=== PATIENT | female | born 1970 | race Caucasian/White ===

== ENCOUNTER 2017-01-02 13:46 | Inpatient (IN) | payer OTHER ==
[~2017-01-02] VITALS: Ht 165.1 cm; Wt 97.6 kg
[~2017-01-02 13:46] MED LIST: ACEON2 MG PO; ACEON8 MG PO; AERONEB GO NEB1 EACH MC; ALBUTEROL SULF8.5 GM IH; ALLEGRA ALLERGY60 MG PO; CARVEDILOL6.25 MG PO; CELEBREX200 MG PO; COREG3.125 M1 PO; COUMADIN,JANTOVE1 MG PO; COUMADIN1 MG PO; COUMADIN10 MG PO; COUMADIN2 MG PO; COUMADIN7.5 MG PO; CYANOCOBALAMI100 MCG PO; CYCLOBENZAPRINE10 MG PO; DULCOLAX5 MG PO; DUONEB 2.5-0.5 M3 ML AEROSOL; ENDOCET 5-3251 EACH PO; FISH OIL CONC1 EACH PO; FLEXERIL10 MG PO; IPRATR-ALBUTEROL3 ML IH; IRON325 M1 PO; K-DUR20 MEQ PO; LASIX20 MG PO; LASIX40 MG PO; LEVAQUIN500 MG PO; LEVAQUIN750 MG PO; LIDEX 0.05% CRE60 GM TP; LIPOZENE PO; LORTAB 5-325 M1 EACH PO; LOVENOX100 MG/1 M SC; MICRO-K10 ME1 PO; NAPROXEN500 MG PO; NYSTATIN-TRIAMC15 GM TP; POTASSIUM CHLO10 ME3 PO; POTASSIUM PO; PREDNISONE20 MG PO; SYNALAR 0.025%15 GM TP; TYLENOL WITH C1 EACH PO; VALIUM2 MG PO; VICODINE PO; VITAMIN B122500 MCG PO; VITAMIN D31000 UNIT PO; WARFARIN SODIU7.5 MG; WARFARIN SODIU7.5 MG PO; ZESTRIL2.5 MG PO; ZOFRAN4 MG PO; lipozene PO
[2017-01-02 14:22] LABS: EOSINOPHIL (%) 1.8 % (0-5); EOSINOPHIL COUNT 0.2 K/uL (0-0.3); HEMATOCRIT 40.6 % (36.0-46.0); IMMATURE GRANULOCYTE (%) 0.2 % (0.0-0.7); INSTRUMENT ABS NEUTROPHIL CT 6.8 K/uL; LYMPHOCYTE COUNT 1.9 K/uL (1.0-2.8); MCH 29.1 PG (29.0-34.0); MCHC 33.7 G/DL (30.0-36.0); MCV 86.2 FL (83-99); MONOCYTE (%) 6.9 % (3-12); MONOCYTE COUNT 0.7 K/uL (0-0.8); NEUTROPHIL (%) 70.9 % (45-76); NEUTROPHIL COUNT 6.8 K/uL (1.8-6.4); PLATELET COUNT 238 K/uL (156-360); RBC DIS.WIDTH-CV 13.2 % (11.8-14.6); RBC DIS.WIDTH-SD 41.7 % (39-53); RED BLOOD COUNT 4.71 M/uL (3.80-5.20); WHITE BLOOD COUNT 9.6 K/uL (4.1-10.2)
[2017-01-02 14:27] LABS: INTER. NORMALIZED RATIO 2.5
[2017-01-02 14:30] LABS: PTT 39.2 SEC (25-37)
[2017-01-02 14:32] LABS: CHLORIDE 109 mEq/L (99-109); POTASSIUM 3.8 mEq/L (3.7-5.4); SODIUM 140 mEq/L (136-147)
[2017-01-02 14:34] LABS: GLUCOSE 138 mg/dL (70-99)
[2017-01-02 14:36] LABS: ANION GAP 7 MEQ/L (2-14)
[2017-01-02 14:38] LABS: GFR ESTIMATE (CALCULATED) > 59 mL/min/
[2017-01-02 14:39] LABS: UREA NITROGEN (BUN) 12 mg/dL (9-23)
[2017-01-02 14:42] LABS: TROP-I INTERPRETATION NEGATIVE; TROPONIN-I 0.05 ng/mL (0.0-0.30)
[2017-01-02 16:02] LABS: ADD MIUA? YES; BILIRUBIN NEGATIVE; BLOOD NEGATIVE; COLOR YELLOW ((YELLOW)); GLUCOSE (STRIP) NEGATIVE; KETONES NEGATIVE; LEUKOCYTES NEGATIVE; NITRITE NEGATIVE; PROTEIN (STRIP) 30; SPECIFIC GRAVITY 1.016 (1.000-1.030); UROBILINOGEN 0.2 MG/DL (0.2-1.0)
[2017-01-02 16:18] LABS: BACTERIA RARE /HPF; EPITHELIAL CELLS 1+ /HPF; MUCUS TRACE /LPF; RED BLOOD CELLS 0-5 /HPF (0-5); UCUL ADDED? NO; UNCLASSIFIED CASTS 0-5 /LPF; WHITE BLOOD CELLS 0-5 /HPF (0-5)
[2017-01-02] MEDS ORDERED: COREG6.25 M1 PO (17:34)
[2017-01-02] MEDS ORDERED: LASIX80 MG PO (17:35)
[2017-01-02] MEDS ORDERED: PROAIR HFA8.5 GM IH (17:37)
[2017-01-02] MEDS ORDERED: CORLANOR5 MG PO (17:38)
[2017-01-02] MEDS ORDERED: BUMEX1 MG PO (17:38)
[2017-01-02] MEDS ORDERED: TYLENOL WITH C1 EACH PO (17:39)
[2017-01-02] MEDS ORDERED: COLACE100 MG PO (17:39)
[2017-01-02] MEDS ORDERED: COZAAR25 MG PO (17:39)
[2017-01-02] MEDS ORDERED: NIZORAL 2% CREA15 GM TP (17:40)
[2017-01-02 18:03] LABS: POINT-OF-CARE METER ID UU13113702
[2017-01-02 21:09] VITALS: BP 134/80
[2017-01-02 21:52] LABS: TROP-I INTERPRETATION NEGATIVE; TROPONIN-I 0.05 ng/mL (0.0-0.30)
[2017-01-03 03:49] VITALS: BP 112/56
[2017-01-03 06:41] LABS: TROP-I INTERPRETATION NEGATIVE; TROPONIN-I 0.04 ng/mL (0.0-0.30)
[2017-01-03 07:35] VITALS: BP 100/65
[2017-01-03 11:45] LABS: INTER. NORMALIZED RATIO 1.7; PROTHROMBIN TIME 19.5 SEC (10.2-12.9)
[2017-01-03 12:09] VITALS: BP 104/68
[2017-01-03 12:10] LABS: TROP-I INTERPRETATION NEGATIVE; TROPONIN-I 0.04 ng/mL (0.0-0.30)
[2017-01-03 16:35] VITALS: BP 113/69
[2017-01-03 18:29] LABS: HDL CHOLESTEROL 41 MG/DL (Desirable>=50); LDL CHOLESTEROL 105 mg/dL (Desirable<100); NON-HDL CHOLESTEROL 113 mg/dL (Desirable<160); TOTAL CHOLESTEROL 154 mg/dL (Desirable<200); TRIGLYCERIDES 41 MG/DL (Normal: <150)
[2017-01-03 18:50] LABS: Estimated Average Glucose 114 mg/dL (70-123); HEMOGLOBIN A1c (GLYCOHEMOGLOB) 5.6 % HGB (Below 5.7)
[2017-01-03 19:48] VITALS: BP 133/64
[2017-01-03 23:31] VITALS: BP 93/58
[2017-01-04 03:41] VITALS: BP 109/61
[2017-01-04 06:33] LABS: EOSINOPHIL (%) 2.5 % (0-5); EOSINOPHIL COUNT 0.2 K/uL (0-0.3); HEMATOCRIT 40.1 % (36.0-46.0); IMMATURE GRANULOCYTE (%) 0.2 % (0.0-0.7); INSTRUMENT ABS NEUTROPHIL CT 5.7 K/uL; LYMPHOCYTE COUNT 2.3 K/uL (1.0-2.8); MCH 28.6 PG (29.0-34.0); MCHC 32.9 G/DL (30.0-36.0); MEAN PLAT.VOLUME 10.4 uM^3 (9.5-12.4); MONOCYTE COUNT 0.6 K/uL (0-0.8); NEUTROPHIL (%) 64.1 % (45-76); NEUTROPHIL COUNT 5.7 K/uL (1.8-6.4); PLATELET COUNT 243 K/uL (156-360); RBC DIS.WIDTH-CV 13.3 % (11.8-14.6); RBC DIS.WIDTH-SD 42.7 % (39-53); RED BLOOD COUNT 4.61 M/uL (3.80-5.20); WHITE BLOOD COUNT 8.9 K/uL (4.1-10.2)
[2017-01-04 07:18] LABS: INTER. NORMALIZED RATIO 1.4; PROTHROMBIN TIME 15.9 SEC (10.2-12.9)
[2017-01-04 07:25] LABS: PTT 38.4 SEC (25-37)
[2017-01-04 08:18] VITALS: BP 114/61
[2017-01-04 08:44] LABS: POINT-OF-CARE METER ID UU14188625
[2017-01-04 12:40] LABS: POINT-OF-CARE METER ID UU14188625
[2017-01-04 12:45] VITALS: BP 100/56
[2017-01-04 16:10] VITALS: BP 107/55
[2017-01-04 17:15] LABS: POINT-OF-CARE METER ID UU14188625
[2017-01-04 20:10] VITALS: BP 143/68
[2017-01-04 23:27] VITALS: BP 133/71
[2017-01-05 06:23] LABS: INTER. NORMALIZED RATIO 1.7; PROTHROMBIN TIME 19.2 SEC (10.2-12.9)
[2017-01-05 08:17] VITALS: BP 123/66
[2017-01-05 08:47] LABS: POINT-OF-CARE METER ID UU14188625
[2017-01-05 12:00] VITALS: BP 110/57
[2017-01-05 12:11] LABS: INTER. NORMALIZED RATIO 1.9; PROTHROMBIN TIME 21.6 SEC (10.2-12.9)
[2017-01-05 12:15] LABS: PTT 35.8 SEC (25-37)
[2017-01-05 15:53] VITALS: BP 111/69
[2017-01-05 19:47] VITALS: BP 152/65
[2017-01-05 21:20] LABS: POINT-OF-CARE METER ID UU13113717
[2017-01-06] VITALS: BP 137/67
[2017-01-06 03:51] VITALS: BP 107/61
[2017-01-06 13:24] LABS: INTER. NORMALIZED RATIO 2.5; PROTHROMBIN TIME 28.7 SEC (10.2-12.9)
[2017-01-06 13:30] LABS: PTT 48.5 SEC (25-37)
[2017-01-06 16:40] LABS: POINT-OF-CARE METER ID UU14174225
[2017-01-06 17:52] VITALS: BP 112/58
[2017-01-06 19:45] VITALS: BP 117/57
[2017-01-06 20:56] LABS: POINT-OF-CARE METER ID UU14174225
[2017-01-07] VITALS (7 sets, daily range): BP systolic 107–127; BP diastolic 53–76
[2017-01-07 06:36] LABS: HEMATOCRIT 41.1 % (36.0-46.0); MCH 29.6 PG (29.0-34.0); MCHC 33.8 G/DL (30.0-36.0); MCV 87.6 FL (83-99); PLATELET COUNT 218 K/uL (156-360); RBC DIS.WIDTH-CV 13.6 % (11.8-14.6); RBC DIS.WIDTH-SD 43.4 % (39-53); RED BLOOD COUNT 4.69 M/uL (3.80-5.20)
[2017-01-07 06:45] LABS: INTER. NORMALIZED RATIO 2.8; PROTHROMBIN TIME 32.2 SEC (10.2-12.9)
[2017-01-07 06:47] LABS: PTT 37.2 SEC (25-37)
[2017-01-07 07:03] LABS: GLUCOSE 92 mg/dL (70-99)
[2017-01-07 07:04] LABS: ALKALINE PHOSPHATASE 61 IU/L (3-129); ANION GAP 8 MEQ/L (2-14); CHLORIDE 102 MEQ/L (99-109); GFR ESTIMATE (CALCULATED) 57 mL/min/; SAMPLE HEMOLYSIS CHECK 0; SAMPLE ICTERIC CHECK 0; SAMPLE LIPEMIA CHECK 0; SODIUM 140 MEQ/L (136-147); TOTAL BILIRUBIN 0.4 MG/DL (0.0-1.0); UREA NITROGEN (BUN) 16 mg/dL (9-23)
[2017-01-07 11:32] LABS: POINT-OF-CARE METER ID UU14188625
[2017-01-08 04:03] VITALS: BP 111/55
[2017-01-08 08:07] LABS: POINT-OF-CARE METER ID UU14174225
[2017-01-08 08:27] VITALS: BP 105/50
[2017-01-08 08:47] LABS: HEMATOCRIT 40.9 % (36.0-46.0); MCH 28.5 PG (29.0-34.0); MCV 86.5 FL (83-99); MEAN PLAT.VOLUME 9.7 uM^3 (9.5-12.4); PLATELET COUNT 220 K/uL (156-360); RBC DIS.WIDTH-CV 13.2 % (11.8-14.6); RBC DIS.WIDTH-SD 41.7 % (39-53); RED BLOOD COUNT 4.73 M/uL (3.80-5.20); WHITE BLOOD COUNT 6.7 K/uL (4.1-10.2)
[2017-01-08 08:58] LABS: INTER. NORMALIZED RATIO 3.5; PROTHROMBIN TIME 40.1 SEC (10.2-12.9)
[2017-01-08 09:08] LABS: ALKALINE PHOSPHATASE 61 IU/L (3-129); ANION GAP 6 MEQ/L (2-14); CHLORIDE 102 MEQ/L (99-109); GFR ESTIMATE (CALCULATED) > 59 mL/min/; GLUCOSE 107 mg/dL (70-99); SAMPLE HEMOLYSIS CHECK 0; SAMPLE ICTERIC CHECK 0; SAMPLE LIPEMIA CHECK 0; SODIUM 137 MEQ/L (136-147); TOTAL BILIRUBIN 0.4 MG/DL (0.0-1.0); UREA NITROGEN (BUN) 17 mg/dL (9-23)
[2017-01-08 12:00] LABS: POINT-OF-CARE METER ID UU14174225
[2017-01-08 12:10] VITALS: BP 115/62
[2017-01-08] MEDS ORDERED: ATORVASTATIN CA20 MG PO (14:26)
== END 2017-01-08 15:36 | disposition home or self-care (01) | DRG 65 ==
LOC: EME 13:46 → EDOF 18:37 → 5SOUTH 18:37 → ENRESERV 18:42 → 5SOUTH 20:39
PROVIDERS: Internal Medicine; Internal Medicine Cardiovascular Disease; Personal Emergency Response Attendant; Physician Assistant Medical
DX: I63.9 Cerebral infarction, unspecified (principal); I42.0 Dilated cardiomyopathy; Z95.2 Presence of prosthetic heart valve; G47.30 Sleep apnea, unspecified; E66.9 Obesity, unspecified; E11.9 Type 2 diabetes mellitus without complications; I11.0 Hypertensive heart disease with heart failure; I25.10 Atherosclerotic heart disease of native coronary artery without angina pectoris; J44.9 Chronic obstructive pulmonary disease, unspecified; K21.9 Gastro-esophageal reflux disease without esophagitis; D68.32 Hemorrhagic disorder due to extrinsic circulating anticoagulants; T45.515A Adverse effect of anticoagulants, initial encounter; Z95.1 Presence of aortocoronary bypass graft; G81.91 Hemiplegia, unspecified affecting right dominant side; M54.16 Radiculopathy, lumbar region; Z86.73 Personal history of transient ischemic attack (TIA), and cerebral infarction without residual deficits; R29.810 Facial weakness; I34.0 Nonrheumatic mitral (valve) insufficiency; Q21.0 Ventricular septal defect; Z95.810 Presence of automatic (implantable) cardiac defibrillator; Z79.01 Long term (current) use of anticoagulants; Z68.35 Body mass index [BMI] 35.0-35.9, adult; I50.42 Chronic combined systolic (congestive) and diastolic (congestive) heart failure
CPT/HCPCS: 36415; 70450; 70460; 70496; 70498; 71010; 71020; 78452; 80048; 80053; 80061; 81003; 82948; 83036; 84484; 85025; 85027; 85610; 85730; 87040; 87801; 93005; 93017; 93306; 99281; 99285; A9500; J0696; J1815; J2270; J2785; J7050

== ENCOUNTER 2017-01-31 19:16 | Inpatient (IN) | payer OTHER ==
[~2017-01-31] VITALS: Ht 165.1 cm; Wt 90.6 kg
[~2017-01-31 19:16] MED LIST changes: +ATORVASTATIN CA20 MG PO; +BUMEX1 MG PO; +COLACE100 MG PO; +COREG6.25 M1 PO; +CORLANOR5 MG PO; +COZAAR25 MG PO; +LASIX80 MG PO; +NIZORAL 2% CREA15 GM TP; +PROAIR HFA8.5 GM IH
[2017-01-31 20:00] LABS: EOSINOPHIL (%) 0.2 % (0-5); HEMATOCRIT 40.6 % (36.0-46.0); IMMATURE GRANULOCYTE (%) 0.4 % (0.0-0.7); IMMATURE GRANULOCYTE COUNT 0.1 K/uL; MCH 28.5 PG (29.0-34.0); MCHC 33.3 G/DL (30.0-36.0); MCV 85.7 FL (83-99); MEAN PLAT.VOLUME 10.5 uM^3 (9.5-12.4); MONOCYTE (%) 3.5 % (3-12); MONOCYTE COUNT 0.4 K/uL (0-0.8); NEUTROPHIL (%) 79.6 % (45-76); PLATELET COUNT 275 K/uL (156-360); RBC DIS.WIDTH-CV 13.5 % (11.8-14.6); RBC DIS.WIDTH-SD 42.4 % (39-53); RED BLOOD COUNT 4.74 M/uL (3.80-5.20); WHITE BLOOD COUNT 12.6 K/uL (4.1-10.2)
[2017-01-31] MEDS ORDERED: TRAMADOL HCL50 MG PO (20:01)
[2017-01-31] MEDS ORDERED: CEFDINIR300 MG PO (20:02)
[2017-01-31] MEDS ORDERED: METHYLPREDNISOLO4 M1 PO (20:02)
[2017-01-31] MEDS ORDERED: [UNRECOGNIZED DRUG - OTHER] PO (20:04)
[2017-01-31 20:09] LABS: PTT 55.3 SEC (25-37)
[2017-01-31 20:11] LABS: PROTHROMBIN TIME 114.3 SEC (10.2-12.9)
[2017-01-31 20:12] LABS: INTER. NORMALIZED RATIO 9.5
[2017-01-31 20:23] LABS: TROP-I INTERPRETATION NEGATIVE; TROPONIN-I 0.02 ng/mL (0.0-0.30)
[2017-01-31 20:30] LABS: CHLORIDE 108 mEq/L (99-109); POTASSIUM 3.6 mEq/L (3.7-5.4); SODIUM 138 mEq/L (136-147)
[2017-01-31 20:31] LABS: MAGNESIUM 1.9 mg/dL (1.3-2.7)
[2017-01-31 20:33] LABS: GLUCOSE 254 mg/dL (70-99)
[2017-01-31 20:34] LABS: ANION GAP 11 MEQ/L (2-14)
[2017-01-31 20:35] LABS: TOTAL BILIRUBIN 0.6 mg/dL (0.0-1.0)
[2017-01-31 20:36] LABS: ALKALINE PHOSPHATASE 83 IU/L (3-129); GFR ESTIMATE (CALCULATED) 52 mL/min/
[2017-01-31 20:37] LABS: UREA NITROGEN (BUN) 19 mg/dL (9-23)
[2017-01-31 20:39] LABS: CREATINE KINASE 77 IU/L (1-294); TOTAL CK 77 IU/L (1-294)
[2017-02-01 00:17] VITALS: BP 121/70
[2017-02-01] MEDS ORDERED: CLOPIDOGREL75 MG PO (00:28)
[2017-02-01] MEDS ORDERED: COUMADIN5 MG PO (00:30)
[2017-02-01] MEDS ORDERED: ENOXAPARIN100 MG/1 M SC (00:39)
[2017-02-01] MEDS ORDERED: CARVEDILOL6.25 MG PO (00:40)
[2017-02-01] MEDS ORDERED: LOSARTAN POTASS25 MG PO (00:41)
[2017-02-01 04:45] VITALS: BP 115/61
[2017-02-01 06:44] LABS: MCH 29.5 PG (29.0-34.0); MCHC 33.1 G/DL (30.0-36.0); MEAN PLAT.VOLUME 10.4 uM^3 (9.5-12.4); PLATELET COUNT 248 K/uL (156-360); RBC DIS.WIDTH-CV 13.8 % (11.8-14.6); RBC DIS.WIDTH-SD 45.1 % (39-53); RED BLOOD COUNT 4.38 M/uL (3.80-5.20); WHITE BLOOD COUNT 11.9 K/uL (4.1-10.2)
[2017-02-01 07:07] LABS: ANION GAP 10 MEQ/L (2-14); CHLORIDE 104 MEQ/L (99-109); GFR ESTIMATE (CALCULATED) > 59 mL/min/; POTASSIUM 3.7 MEQ/L (3.7-5.4); SAMPLE HEMOLYSIS CHECK 0; SAMPLE ICTERIC CHECK 0; SAMPLE LIPEMIA CHECK 0; SODIUM 141 MEQ/L (136-147); UREA NITROGEN (BUN) 15 mg/dL (9-23)
[2017-02-01 07:09] LABS: GLUCOSE 95 mg/dL (70-99)
[2017-02-01 08:52] LABS: POINT-OF-CARE METER ID UU13113700
[2017-02-01 11:47] VITALS: BP 110/56
[2017-02-01 12:16] LABS: POINT-OF-CARE METER ID UU14162513
[2017-02-01 14:14] LABS: INTER. NORMALIZED RATIO 2.8; PROTHROMBIN TIME 31.9 SEC (10.2-12.9)
[2017-02-01 16:10] VITALS: BP 101/57
[2017-02-01 17:28] LABS: POINT-OF-CARE METER ID UU13113700
[2017-02-01 20:00] VITALS: BP 122/67
[2017-02-02] VITALS: BP 166/59
[2017-02-02 05:40] LABS: HEMATOCRIT 41.8 % (36.0-46.0); MCH 29.2 PG (29.0-34.0); MCHC 33.5 G/DL (30.0-36.0); MCV 87.3 FL (83-99); MEAN PLAT.VOLUME 10.3 uM^3 (9.5-12.4); PLATELET COUNT 259 K/uL (156-360); RBC DIS.WIDTH-CV 13.5 % (11.8-14.6); RBC DIS.WIDTH-SD 43.4 % (39-53); RED BLOOD COUNT 4.79 M/uL (3.80-5.20); WHITE BLOOD COUNT 12.8 K/uL (4.1-10.2)
[2017-02-02 05:50] LABS: INTER. NORMALIZED RATIO 1.5; PROTHROMBIN TIME 16.8 SEC (10.2-12.9)
[2017-02-02 06:03] LABS: ALKALINE PHOSPHATASE 73 IU/L (3-129); ANION GAP 9 MEQ/L (2-14); CHLORIDE 101 MEQ/L (99-109); GFR ESTIMATE (CALCULATED) > 59 mL/min/; GLUCOSE 103 mg/dL (70-99); POTASSIUM 3.8 MEQ/L (3.7-5.4); SAMPLE HEMOLYSIS CHECK 0; SAMPLE ICTERIC CHECK 0; SAMPLE LIPEMIA CHECK 0; SODIUM 138 MEQ/L (136-147); UREA NITROGEN (BUN) 16 mg/dL (9-23)
[2017-02-02 06:15] LABS: TOTAL BILIRUBIN 1.3 MG/DL (0.0-1.0)
[2017-02-02 07:31] VITALS: BP 106/57
[2017-02-02 08:16] LABS: POINT-OF-CARE METER ID UU13113700
[2017-02-02 12:34] LABS: POINT-OF-CARE METER ID UU13113700
[2017-02-02 12:35] VITALS: BP 115/59
[2017-02-02 16:16] VITALS: BP 104/68
[2017-02-02 17:48] LABS: POINT-OF-CARE METER ID UU13113700
[2017-02-02 20:32] VITALS: BP 116/70
[2017-02-02 22:55] VITALS: BP 119/65
[2017-02-03 04:48] VITALS: BP 101/52
[2017-02-03 08:45] VITALS: BP 131/79
[2017-02-03 10:19] LABS: INTER. NORMALIZED RATIO 1.3; PROTHROMBIN TIME 13.9 SEC (10.2-12.9)
[2017-02-03 11:47] VITALS: BP 113/62
[2017-02-03 19:30] VITALS: BP 119/75
[2017-02-04 03:35] VITALS: BP 106/52
[2017-02-04 06:28] LABS: INTER. NORMALIZED RATIO 1.4; PROTHROMBIN TIME 16.1 SEC (10.2-12.9)
[2017-02-04 08:45] VITALS: BP 107/64
[2017-02-04 16:30] VITALS: BP 119/64
[2017-02-04 20:00] VITALS: BP 111/60
[2017-02-05 00:54] VITALS: BP 97/56
[2017-02-05 04:30] VITALS: BP 107/57
[2017-02-05 06:00] LABS: INTER. NORMALIZED RATIO 1.3; PROTHROMBIN TIME 14.9 SEC (10.2-12.9)
[2017-02-05 07:35] VITALS: BP 109/60
[2017-02-05 09:28] LABS: POINT-OF-CARE METER ID UU13113831
[2017-02-05 11:52] VITALS: BP 90/60
[2017-02-05 12:35] LABS: POINT-OF-CARE METER ID UU13113700
[2017-02-05 19:30] VITALS: BP 130/93
[2017-02-05 23:23] VITALS: BP 110/69
[2017-02-06 04:44] VITALS: BP 92/50
[2017-02-06 07:43] VITALS: BP 115/63
[2017-02-06 09:25] LABS: HEMATOCRIT 43.9 % (36.0-46.0); MCH 28.3 PG (29.0-34.0); MCHC 32.8 G/DL (30.0-36.0); MCV 86.2 FL (83-99); MEAN PLAT.VOLUME 10.1 uM^3 (9.5-12.4); PLATELET COUNT 290 K/uL (156-360); RBC DIS.WIDTH-CV 13.2 % (11.8-14.6); RBC DIS.WIDTH-SD 41.4 % (39-53); RED BLOOD COUNT 5.09 M/uL (3.80-5.20); WHITE BLOOD COUNT 10.8 K/uL (4.1-10.2)
[2017-02-06 09:29] LABS: INTER. NORMALIZED RATIO 1.7; PROTHROMBIN TIME 18.8 SEC (10.2-12.9)
[2017-02-06 09:51] LABS: ANION GAP 8 MEQ/L (2-14); CHLORIDE 101 MEQ/L (99-109); GFR ESTIMATE (CALCULATED) > 59 mL/min/; GLUCOSE 93 mg/dL (70-99); POTASSIUM 4.1 MEQ/L (3.7-5.4); SAMPLE HEMOLYSIS CHECK 0; SAMPLE ICTERIC CHECK 0; SAMPLE LIPEMIA CHECK 0; SODIUM 136 MEQ/L (136-147); UREA NITROGEN (BUN) 18 mg/dL (9-23)
[2017-02-06 12:16] LABS: POINT-OF-CARE METER ID UU13113831
[2017-02-06] MEDS ORDERED: CYCLOBENZAPRINE10 MG PO (12:47)
[2017-02-06] MEDS ORDERED: TRAMADOL HCL50 MG PO (12:52)
== END 2017-02-06 15:03 | disposition home health service (06) | DRG 300 ==
LOC: EME → EDBD 19:16 → 5WEST 23:13 → EDOF 23:13 → ENRESERV 23:14 → 5WEST 02-01 00:04
PROVIDERS: Emergency Medicine; Family Medicine; Internal Medicine
DX: I72.8 Aneurysm of other specified arteries (principal); D68.9 Coagulation defect, unspecified; E11.9 Type 2 diabetes mellitus without complications; J44.9 Chronic obstructive pulmonary disease, unspecified; I10 Essential (primary) hypertension; I25.10 Atherosclerotic heart disease of native coronary artery without angina pectoris; I25.5 Ischemic cardiomyopathy; D64.9 Anemia, unspecified; K21.9 Gastro-esophageal reflux disease without esophagitis; M79.601 Pain in right arm; M79.632 Pain in left forearm; R00.2 Palpitations; R11.2 Nausea with vomiting, unspecified; R19.7 Diarrhea, unspecified; R20.0 Anesthesia of skin; R20.2 Paresthesia of skin; R51 Headache; E66.9 Obesity, unspecified; Z79.01 Long term (current) use of anticoagulants; Z86.73 Personal history of transient ischemic attack (TIA), and cerebral infarction without residual deficits; Z95.810 Presence of automatic (implantable) cardiac defibrillator; Z95.1 Presence of aortocoronary bypass graft; Z95.2 Presence of prosthetic heart valve; Z68.33 Body mass index [BMI] 33.0-33.9, adult
CPT/HCPCS: 71010; 71020; 80048; 80053; 82550; 82553; 82948; 83735; 83880; 84484; 85025; 85027; 85610; 85730; 90686; 93005; 93971; 94640; 94640 76; 99202; 99281; 99285; G0378; J0696; J1650; J2270; J2405; J7050; J7509

== ENCOUNTER 2017-06-30 16:32 | Inpatient (IN) | payer OTHER ==
[~2017-06-30] VITALS: Ht 165.1 cm; Wt 95.8 kg
[~2017-06-30 16:32] MED LIST changes: +CEFDINIR300 MG PO; +CLOPIDOGREL75 MG PO; +COUMADIN5 MG PO; +ENOXAPARIN100 MG/1 M SC; +LOSARTAN POTASS25 MG PO; +METHYLPREDNISOLO4 M1 PO; +TRAMADOL HCL50 MG PO; +[UNRECOGNIZED DRUG - OTHER] PO
[2017-06-30] MEDS ORDERED: NASACORT10.8 ML BOTH NARES (19:15)
[2017-06-30] MEDS ORDERED: ECONAZOLE NITRA15 GM TP (19:15)
[2017-06-30] MEDS ORDERED: ITCHY EYE5 ML BOTH EYES (19:16)
[2017-06-30] MEDS ORDERED: BUTALB-ASPIRIN1 EACH PO (19:17)
[2017-06-30] MEDS ORDERED: DEMADEX20 MG PO ×2 (19:20→22:07)
[2017-06-30 19:52] VITALS: BP 135/65
[2017-06-30 22:02] LABS: PTT 58.6 SEC (25-37)
[2017-06-30 22:21] LABS: INTER. NORMALIZED RATIO 7.1
[2017-06-30 23:58] VITALS: BP 96/50
[2017-07-01 04:35] VITALS: BP 107/57
[2017-07-01 06:57] LABS: INTER. NORMALIZED RATIO 6.2
[2017-07-01 07:46] VITALS: BP 109/54
[2017-07-01 11:34] VITALS: BP 92/53
[2017-07-01 15:49] VITALS: BP 98/74
[2017-07-01 19:43] VITALS: BP 122/56
[2017-07-01 23:00] VITALS: BP 97/55
[2017-07-02 04:06] VITALS: BP 91/54
[2017-07-02 06:11] LABS: HEMATOCRIT 41.8 % (36.0-46.0); HEMOGLOBIN 13.9 G/DL (11.9-15.5); MCH 29.1 PG (29.0-34.0); MCHC 33.3 G/DL (30.0-36.0); MCV 87.6 FL (83-99); PLATELET COUNT 217 K/uL (156-360); RBC DIS.WIDTH-CV 12.9 % (11.8-14.6); RBC DIS.WIDTH-SD 41.2 % (39-53); RED BLOOD COUNT 4.77 M/uL (3.80-5.20); WHITE BLOOD COUNT 8.3 K/uL (4.1-10.2)
[2017-07-02 07:10] VITALS: BP 92/54
[2017-07-02 11:15] LABS: INTER. NORMALIZED RATIO 2.5
[2017-07-02 12:00] VITALS: BP 113/54
[2017-07-02 13:03] LABS: PTT 41.2 SEC (25-37)
[2017-07-02 15:31] VITALS: BP 117/55
[2017-07-02 19:25] VITALS: BP 113/50
[2017-07-02 23:10] VITALS: BP 96/54
[2017-07-03 04:03] VITALS: BP 102/57
[2017-07-03 05:49] LABS: INTER. NORMALIZED RATIO 1.8
[2017-07-03 05:52] LABS: PTT 101.9 SEC (25-37)
[2017-07-03 06:07] LABS: CHLORIDE 101 MEQ/L (99-109); GFR ESTIMATE (CALCULATED) > 59 mL/min/; GLUCOSE 86 mg/dL (70-99); POTASSIUM 3.5 MEQ/L (3.7-5.4); SODIUM 140 MEQ/L (136-147); UREA NITROGEN (BUN) 10 mg/dL (9-23)
[2017-07-03 07:35] VITALS: BP 94/43
[2017-07-03 11:05] VITALS: BP 96/55
[2017-07-03 16:05] VITALS: BP 113/62
[2017-07-03 20:28] VITALS: BP 106/56
[2017-07-03 23:39] VITALS: BP 117/58
[2017-07-04 04:13] VITALS: BP 97/51
[2017-07-04 06:35] LABS: CHLORIDE 105 MEQ/L (99-109); GFR ESTIMATE (CALCULATED) > 59 mL/min/; GLUCOSE 83 mg/dL (70-99); POTASSIUM 3.8 MEQ/L (3.7-5.4); SODIUM 141 MEQ/L (136-147); UREA NITROGEN (BUN) 9 mg/dL (9-23)
[2017-07-04 06:45] LABS: INTER. NORMALIZED RATIO 1.6
[2017-07-04 06:48] LABS: PTT 69.7 SEC (25-37)
[2017-07-04 07:41] VITALS: BP 112/58
[2017-07-04 16:49] VITALS: BP 107/53
[2017-07-04 20:55] VITALS: BP 104/51
[2017-07-05] VITALS (7 sets, daily range): BP systolic 96–112; BP diastolic 44–57
[2017-07-05 06:00] LABS: INTER. NORMALIZED RATIO 1.9
[2017-07-05 06:03] LABS: PTT 96.8 SEC (25-37)
[2017-07-05 06:05] LABS: HEMATOCRIT 35.3 % (36.0-46.0); HEMOGLOBIN 11.8 G/DL (11.9-15.5); MCH 29.3 PG (29.0-34.0); MCHC 33.4 G/DL (30.0-36.0); MCV 87.6 FL (83-99); PLATELET COUNT 199 K/uL (156-360); RBC DIS.WIDTH-CV 12.9 % (11.8-14.6); RBC DIS.WIDTH-SD 41.2 % (39-53); RED BLOOD COUNT 4.03 M/uL (3.80-5.20); WHITE BLOOD COUNT 9.5 K/uL (4.1-10.2)
[2017-07-05 19:14] LABS: INTER. NORMALIZED RATIO 2.2
[2017-07-05 19:17] LABS: PTT 78.1 SEC (25-37)
[2017-07-06 02:28] LABS: INTER. NORMALIZED RATIO 2.2
[2017-07-06 04:13] VITALS: BP 109/60
[2017-07-06 04:24] LABS: HEMATOCRIT 37.4 % (36.0-46.0); HEMOGLOBIN 12.5 G/DL (11.9-15.5); MCH 29.3 PG (29.0-34.0); MCHC 33.4 G/DL (30.0-36.0); MCV 87.8 FL (83-99); PLATELET COUNT 208 K/uL (156-360); RBC DIS.WIDTH-CV 13.1 % (11.8-14.6); RBC DIS.WIDTH-SD 41.8 % (39-53); RED BLOOD COUNT 4.26 M/uL (3.80-5.20); WHITE BLOOD COUNT 7.8 K/uL (4.1-10.2)
[2017-07-06 04:54] LABS: CHLORIDE 105 mEq/L (99-109); POTASSIUM 4.2 mEq/L (3.7-5.4); SODIUM 139 mEq/L (136-147)
[2017-07-06 04:55] LABS: GLUCOSE 72 mg/dL (70-99)
[2017-07-06 04:59] LABS: GFR ESTIMATE (CALCULATED) > 59 mL/min/
[2017-07-06 05:00] LABS: UREA NITROGEN (BUN) 14 mg/dL (9-23)
[2017-07-06 07:50] VITALS: BP 95/56
[2017-07-06] MEDS ORDERED: ENOXAPARIN100 MG/1 M SC (09:38)
== END 2017-07-06 12:02 | disposition home or self-care (01) | DRG 392 ==
LOC: 4SOUTH 16:32 → ENRESERV 16:32 → 4SOUTH 17:08
PROVIDERS: Family Medicine; Internal Medicine; Internal Medicine Cardiovascular Disease; Physician Assistant Medical; Specialist
DX: K52.9 Noninfective gastroenteritis and colitis, unspecified (principal); K63.3 Ulcer of intestine; D68.9 Coagulation defect, unspecified; T45.515A Adverse effect of anticoagulants, initial encounter; K59.09 Other constipation; I11.0 Hypertensive heart disease with heart failure; I50.22 Chronic systolic (congestive) heart failure; I47.2 Ventricular tachycardia; I25.5 Ischemic cardiomyopathy; I49.3 Ventricular premature depolarization; K64.8 Other hemorrhoids; N92.0 Excessive and frequent menstruation with regular cycle; N28.9 Disorder of kidney and ureter, unspecified; J06.9 Acute upper respiratory infection, unspecified; J44.9 Chronic obstructive pulmonary disease, unspecified; E11.9 Type 2 diabetes mellitus without complications; E78.5 Hyperlipidemia, unspecified; M19.90 Unspecified osteoarthritis, unspecified site; E66.9 Obesity, unspecified; Z68.35 Body mass index [BMI] 35.0-35.9, adult; Z79.01 Long term (current) use of anticoagulants; Z86.73 Personal history of transient ischemic attack (TIA), and cerebral infarction without residual deficits; Z95.810 Presence of automatic (implantable) cardiac defibrillator; Z95.2 Presence of prosthetic heart valve; Z87.74 Personal history of (corrected) congenital malformations of heart and circulatory system
CPT/HCPCS: 74177; 80048; 82948; 85027; 85610; 85730; 88305; 90686; 93005; 94640; 94640 76; 94760; 99202; J0290; J2405; J3480; J7050

== ENCOUNTER 2017-08-25 11:30 | Emergency (ER) | payer OTHER ==
[~2017-08-25] VITALS: Ht 165.1 cm; Wt 93.9 kg
[~2017-08-25 11:30] MED LIST changes: +BUTALB-ASPIRIN1 EACH PO; +DEMADEX20 MG PO; +ECONAZOLE NITRA15 GM TP; +ITCHY EYE5 ML BOTH EYES; +NASACORT10.8 ML BOTH NARES
[2017-08-25 12:42] LABS: BASOPHIL (%) 0.4 % (0-1); EOSINOPHIL (%) 1.4 % (0-5); EOSINOPHIL COUNT 0.1 K/uL (0-0.3); HEMATOCRIT 38.2 % (36.0-46.0); HEMOGLOBIN 12.9 G/DL (11.9-15.5); IMMATURE GRANULOCYTE (%) 0.5 % (0.0-0.7); LYMPHOCYTE COUNT 1.5 K/uL (1.0-2.8); MCH 29.4 PG (29.0-34.0); MCHC 33.8 G/DL (30.0-36.0); MONOCYTE COUNT 0.7 K/uL (0-0.8); NEUTROPHIL (%) 75.7 % (45-76); NEUTROPHIL COUNT 7.8 K/uL (1.8-6.4); RBC DIS.WIDTH-CV 13.6 % (11.8-14.6); RBC DIS.WIDTH-SD 43.5 % (39-53); RED BLOOD COUNT 4.39 M/uL (3.80-5.20); WHITE BLOOD COUNT 10.2 K/uL (4.1-10.2)
[2017-08-25 12:45] LABS: PLATELET COUNT 487 K/uL (156-360)
[2017-08-25 12:52] LABS: CHLORIDE 99 mEq/L (99-109); POTASSIUM 3.9 mEq/L (3.7-5.4); SODIUM 139 mEq/L (136-147)
[2017-08-25 12:54] LABS: GLUCOSE 105 mg/dL (70-99)
[2017-08-25 12:57] LABS: GFR ESTIMATE (CALCULATED) > 59 mL/min/
[2017-08-25 12:58] LABS: UREA NITROGEN (BUN) 18 mg/dL (9-23)
[2017-08-25 13:53] LABS: APPEARANCE CLEAR ((CLEAR)); BILIRUBIN NEGATIVE; BLOOD MODERATE; COLOR YELLOW ((YELLOW)); GLUCOSE (STRIP) NEGATIVE; KETONES NEGATIVE; LEUKOCYTES NEGATIVE; NITRITE NEGATIVE; PROTEIN (STRIP) NEGATIVE; SPECIFIC GRAVITY 1.011 (1.000-1.030); UROBILINOGEN 0.2 MG/DL (0.2-1.0)
[2017-08-25 14:06] LABS: BACTERIA RARE /HPF; EPITHELIAL CELLS RARE /HPF; MUCUS NONE SEEN /LPF; UCUL ADDED? NO; WHITE BLOOD CELLS 0-5 /HPF (0-5)
[2017-08-25 14:18] LABS: INTER. NORMALIZED RATIO 3.7
[2017-08-25 14:21] LABS: PTT 38.9 SEC (25-37)
[2017-08-25] MEDS ORDERED: KEFLEX500 MG PO (16:43)
[2017-08-25 16:59] VITALS: BP 114/58
== END 2017-08-25 17:13 | disposition home or self-care (01) ==
LOC: EME 11:30
PROVIDERS: Physician Assistant
DX: R50.9 Fever, unspecified (principal); E11.9 Type 2 diabetes mellitus without complications; J44.9 Chronic obstructive pulmonary disease, unspecified; I10 Essential (primary) hypertension; F41.9 Anxiety disorder, unspecified; Z79.82 Long term (current) use of aspirin; Z79.891 Long term (current) use of opiate analgesic; Z79.01 Long term (current) use of anticoagulants; Z95.2 Presence of prosthetic heart valve; Z95.1 Presence of aortocoronary bypass graft; Z86.73 Personal history of transient ischemic attack (TIA), and cerebral infarction without residual deficits; Z86.79 Personal history of other diseases of the circulatory system; Z90.711 Acquired absence of uterus with remaining cervical stump; Z85.9 Personal history of malignant neoplasm, unspecified; Z88.6 Allergy status to analgesic agent; Z88.5 Allergy status to narcotic agent; Z88.8 Allergy status to other drugs, medicaments and biological substances; Z91.040 Latex allergy status
CPT/HCPCS: 70450; 71046; 80048; 81003; 83605; 85025; 85610; 85730; 87040; 93971; 99281; 99284; J3010